=== PATIENT | male | born 1955 | race Caucasian/White ===

== ENCOUNTER 2017-12-22 14:27 | Emergency (ER) | payer BC, MEDICARE, OTHER ==
[2017-12-22] MEDS ORDERED: LIDOCAINE 1%/EPINEPHRINE INJ 20 ML VIAL INJ ONE (15:15)
[2017-12-22] MEDS ORDERED: DIPH/PERTUSS(ACELL)/TETANUS VAC/PF 0.5 ML SYR (>=10YO) IM ONE (15:15)
[2017-12-22] MEDS ORDERED: CEPHALEXIN 500 MG CAPSULE PO ONE (15:17)
--- NOTE | 2017-12-22 15:19 | ER Document Report ---
ED General - General Chief Complaint: Laceration Stated Complaint: RIGHT LEG INJURY Time Seen by Provider: 12/22/17 15:04 Mode of Arrival: Ambulatory Information source: Patient Notes: Chief complaint: Right lower lip laceration History of complain:( obtained from----patient) 62 years old male who accidentally sustained a laceration over the right lower leg below the calf by walking backwards and hitting a metal object. No other injuries Onset: Sudden Duration: Prior to arrival Severity: Mild Quality: Sharp Context: As above Exacerbating factor and relieving factors: As above REVIEW OF SYSTEMS: CONSTITUTIONAL : Denies fever, chills, or sweats. Denies recent illness. EENT: Denies eye, ear, throat, or mouth pain or symptoms. Denies nasal or sinus congestion or discharge. Denies throat, tongue, or mouth swelling or difficulty swallowing. CARDIOVASCULAR: Denies chest pain. Denies palpitations or racing or irregular heart beat. Denies ankle edema. RESPIRATORY: Denies cough, cold, or chest congestion. Denies shortness of breath, difficulty breathing, or wheezing. GASTROINTESTINAL: Denies distention. Denies nausea, vomiting, or diarrhea. Denies blood in vomitus, stools, or per rectum. Denies black, tarry stools. Denies constipation. GENITOURINARY: Denies difficulty urinating, painful urination, burning, frequency, blood in urine, or discharge. FEMALE GENITOURINARY: Denies vaginal bleeding, heavy or abnormal periods, irregular periods. Denies vaginal discharge or odor. MUSCULOSKELETAL: Denies back or neck pain or stiffness. Denies joint pain or swelling. SKIN: Denies rash, lesions or sores. HEMATOLOGIC : Denies easy bruising or bleeding. LYMPHATIC: Denies swollen, enlarged glands. NEUROLOGICAL: Denies confusion or altered mental status. Denies passing out or loss of consciousness. Denies dizziness or lightheadedness. Denies headache. Denies weakness or paralysis or loss of use of either side. Denies problems with gait or speech. Denies sensory loss, numbness, or tingling. Denies seizures. PSYCHIATRIC: Denies anxiety or stress. Denies depression, suicidal ideation, or homicidal ideation. ALL OTHER SYSTEMS REVIEWED AND NEGATIVE. PHYSICAL EXAMINATION: GENERAL: Well-appearing, well-nourished and in no acute distress. HEAD: Atraumatic, normocephalic. EYES: Pupils equal round and reactive to light, extraocular movements intact, conjunctiva are normal. ENT: Nares patent, oropharynx clear without exudates. Moist mucous membranes. NECK: Normal range of motion, supple without lymphadenopathy LUNGS: Breath sounds clear to auscultation bilaterally and equal. No wheezes rales or rhonchi. HEART: Regular rate and rhythm without murmurs ABDOMEN: Soft, nontender, nondistended abdomen. No guarding, no rebound. No masses appreciated. Examination of genitals-deferred Musculoskeletal: Normal range of motion, no pitting or edema. No cyanosis. NEUROLOGICAL: Cranial nerves grossly intact. Normal speech, normal gait. Normal sensory, motor exams PSYCH: Normal mood, normal affect. SKIN: Laceration over the right lower leg which is a V-shaped laceration. Full skin thickness. No underlying muscles involved Dictation was performed using [employer] voice recognition software TRAVEL OUTSIDE OF THE [place] IN LAST 30 DAYS: No - HPI Onset: Just prior to arrival Onset/Duration: Sudden Notes: Dictated - Related Data Allergies/Adverse Reactions: ciprofloxacin Allergy (Verified 12/22/17 14:52) ibuprofen [From Motrin] Adverse Reaction (Verified 12/22/17 14:52) Past Medical History - General Information source: Patient - Social History Smoking Status: Never Smoker Chew tobacco use (# tins/day): No Frequency of alcohol use: None Drug Abuse: None Lives with: Family Family History: Reviewed & Not Pertinent Patient has suicidal ideation: No Patient has homicidal ideation: No Renal/ Medical History: Denies: Hx Peritoneal Dialysis Other: Dictated Review of Systems - Review of Systems Notes: Dictated Physical Exam - Vital signs Vitals: Temp Pulse Resp BP Pulse Ox 99.0 F 87 18 140/78 H 99 12/22/17 14:37 12/22/17 14:37 12/22/17 14:37 12/22/17 14:37 12/22/17 14:37 - Notes Notes: Dictated Course - Vital Signs Vital signs: Temp Pulse Resp BP Pulse Ox 99.0 F 87 18 140/78 H 99 12/22/17 14:37 12/22/17 14:37 12/22/17 14:37 12/22/17 14:37 12/22/17 14:37 Procedures - Laceration/Wound Repair Right Lower Leg Time completed: 16:00 Wound length (cm): 7 Wound's Depth, Shape: Superficial Laceration pre-procedure: Sterile PPE donned, Shur-Clens applied Anesthetic type: 1% Lidocaine w/epi Volume Anesthetic (mLs): 8 Wound explored: Clean, No foreign body removed Wound Debrided: Minimal Wound Repaired With: Sutures Suture Size/Type: 3:0, Prolene Number of Sutures: 6 Post-procedure NV exam normal: Yes Complications: No Discharge - Discharge Clinical Impression: Laceration Laceration of leg Qualifiers: Encounter type: initial encounter Laterality: right Qualified Code(s): S81.811A - Laceration without foreign body, right lower leg, initial encounter Condition: Fair Disposition: HOME, SELF-CARE Instructions: Laceration Care ([facility]) Additional Instructions: Suture removal in 12 days Prescriptions: Cephalexin [Keflex] 500 mg PO TID #30 capsule Referrals: NOE BYRNE MD [Primary Care Provider] - Follow up as needed
[2017-12-22 15:50] VITALS: BP 140/78
== END 2017-12-22 16:26 | disposition home or self-care (01) ==
LOC: ER 14:27
DX: S81.811A Laceration without foreign body, right lower leg, initial encounter (principal); W22.8XXA Striking against or struck by other objects, initial encounter; Z88.1 Allergy status to other antibiotic agents
CPT/HCPCS: 99283; 90471; 90715; 12002; A9270; J3490